=== PATIENT | male | born 1980 | race Caucasian/White ===

== ENCOUNTER 2024-02-05 18:58 | Emergency (ER) | payer SELFPAY ==
[2024-02-05 19:04] VITALS: BP 130/80; PULSE 80; RESP 22; TEMP 36.9; O2SAT 97; BMI 24.9
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
[2024-02-05] MEDS: ondansetron 2 mg/ML SDV 2 mL 4 MG IVP (19:41)
[2024-02-05] MEDS: morphine 4 mg/mL SDV 1 mL IVP (19:41)
[2024-02-05] MEDS: ketorolac 30 mg/mL INJ IVP (20:48)
[2024-02-05] MEDS: HYDROmorphone 1 mg/mL INJ 1 mL 0.5 MG IVP (20:49)
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
[2024-02-05 23:09] VITALS: BP 148/68; PULSE 86; O2SAT 99
== END 2024-02-05 23:14 | disposition home or self-care (01) ==
PROVIDERS: Emergency Provider Emergency Medicine
DX: S52.571A Other intraarticular fracture of lower end of right radius, initial encounter for closed fracture (principal); S62.002A Unspecified fracture of navicular [scaphoid] bone of left wrist, initial encounter for closed fracture; S52.612A Displaced fracture of left ulna styloid process, initial encounter for closed fracture; S62.111A Displaced fracture of triquetrum [cuneiform] bone, right wrist, initial encounter for closed fracture; S52.572A Other intraarticular fracture of lower end of left radius, initial encounter for closed fracture; V28.49XA Other motorcycle driver injured in noncollision transport accident in traffic accident, initial encounter; Z72.0 Tobacco use
CPT/HCPCS: 29125; 73110; 96374; 96375; 99284; J1170; J1885; J2270; J2405

== ENCOUNTER → 2024-02-09 08:27 | Outpatient (BNVA) | payer SELFPAY | PROVIDERS: Visit Provider Specialist | DX: S52.501A Unspecified fracture of the lower end of right radius, initial encounter for closed fracture (principal); S62.102A Fracture of unspecified carpal bone, left wrist, initial encounter for closed fracture; X58.XXXA Exposure to other specified factors, initial encounter; Z01.818 Encounter for other preprocedural examination | CPT/HCPCS: 73110; 80053; 85025 ==